=== PATIENT | female | born 1970 ===

== ENCOUNTER → 2017-11-08 | Outpatient (CLI) | payer BC ==
[2017-11-08 18:00] LABS: ALANINE AMINOTRANSFERASE 15 U/L (9-52); ASPARTATE AMINO TRANSFERASE 14 U/L (14-36)
== END ==
LOC: OD 16:58
PROVIDERS: ATTEND Podiatrist Foot Surgery
DX: B35.1 Tinea unguium (principal)
CPT/HCPCS: 36415; 84450; 84460

== ENCOUNTER → 2018-07-22 | Outpatient (CLI) | payer BC ==
--- NOTE | 2018-07-22 12:58 | RADIOLOGY REPORT (SQ) ---
EXAM DESCRIPTION: UGI SERIES COMPLETED DATE/TIME: 07/22/2018 9:05 am REASON FOR STUDY: GERD (K21.9) K21.9 GASTRO-ESOPHAGEAL REFLUX DISEASE WITHOUT ESOPHAGITIS COMPARISON: None. TECHNIQUE: Under fluoroscopic guidance, patient ingested effervescent granules followed by thick and thin barium. Fluoroscopic spot images and routine radiographic images acquired and stored on PACS. 12 MM BARIUM TABLET GIVEN: Yes. 12 mm barium tablet in the fat in the distal esophagus/lap band pouch for about 5 minutes before drop ping through into the stomach. This did not cause symptoms. LIMITATIONS: None. FLUOROSCOPY TIME: FLUORO TIME: 3 minutes 20 second 28 digital radiographic images saved to PACS. FINDINGS: NEUROMUSCULAR COORDINATION OF SWALLOW: Normal. No aspiration. ESOPHAGEAL MOTILITY: Normal peristalsis. No esophageal spasm. ESOPHAGEAL MUCOSA: Normal mucosa without masses or ulceration. GASTRO-ESOPHAGEAL JUNCTION: Patient has a lap band prosthesis. There is a small distal esophageal po uch above the lap band. The lap band prosthesis has slightly migrated distally. There is a 3 x 2 cm gastric cardia pouch opacifying with barium above the lap band prosthesis. Patient swallowed a 12 mm barium tablet which pools in the distal esophageal pouch above the lap band for 5 minutes before dissolving and looping into the stomach. This did not reproduce the patient's symptoms. Throughout the study, no gastroesophageal reflux was identified. STOMACH: Normal without masses or ulcerations. GASTRIC OUTLET: No delay in emptying. Normal pylorus. DUODENAL BULB: Normal distention. No spasm or ulceration. DUODENUM: Mucosa normal. No extrinsic masses or malrotation. PROXIMAL SMALL BOWEL: Mucosa normal. No extrinsic masses or malrotation. NON-GI TRACT STRUCTURES: No significant finding. OTHER: No other significant finding. IMPRESSION: Lap band prosthesis with small gastric fundal diverticulum filling with barium superior to the prosthesis. No gastroesophageal reflux. No gastric emptying delay. COMMENT: Quality ID [id number]: Final reports for procedures using fluoroscopy that document radiation exp osure indices, or exposure time and number of fluorographic images (if radiation exposure indices are not available) TECHNICAL DOCUMENTATION: JOB ID: [id number] [employer]- All Rights Reserved Reading location - IP/workstation name: [email or web address]
== END ==
LOC: RAD 07:46
PROVIDERS: ATTEND Surgery
DX: K21.9 Gastro-esophageal reflux disease without esophagitis (principal)
CPT/HCPCS: 74247